=== PATIENT | male | born 1980 | race Two or more races ===

== ENCOUNTER 2017-08-01 11:10 | Emergency (ER) | payer OTHER, BC ==
[2017-08-01 11:14] VITALS: BP 144/86; PULSE 75; TEMP 97.7; BMI 23.6
[2017-08-01] MEDS ORDERED: IBUPROFEN 600 MG TABLET (FP) PO ONE ×2 (12:40→12:43)
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
== END 2017-08-01 13:40 | disposition home or self-care (01) ==
LOC: JERFT 11:10
DX: S46.812A Strain of other muscles, fascia and tendons at shoulder and upper arm level, left arm, initial encounter (principal); V73.5XXA Driver of bus injured in collision with car, pick-up truck or van in traffic accident, initial encounter; Y92.488 Other paved roadways as the place of occurrence of the external cause; Y93.89 Activity, other specified; Y99.8 Other external cause status; F17.210 Nicotine dependence, cigarettes, uncomplicated
CPT/HCPCS: 73030-TC-LT; 99281-25